=== PATIENT | male | born 1965 | race Caucasian/White ===

== ENCOUNTER 2017-05-01 17:31 | Outpatient (CLI) | payer OTHER ==
[~2017-05-01] VITALS: Ht 152.4 cm; Wt 80.7 kg
[~2017-05-01 17:31] MED LIST: CATAFLAM50 MG PO; FLEXERIL10 MG PO; FLONASE16 GM NS; NORFLEX100MG PO; PROTONIX20 MG PO; TESSALON PERLE100 MG PO; VOLTAREM 50 MG PO; ZITHROMAX TRI-500 MG PO; ZYRTEC10 MG PO
== END 2017-05-01 17:50 | disposition home or self-care (01) ==
LOC: PPHC 17:31
DX: R51 Headache (principal); I10 Essential (primary) hypertension; Z01.89 Encounter for other specified special examinations

== ENCOUNTER 2018-05-17 10:29 | Outpatient (CLI) | payer OTHER ==
[~2018-05-17] VITALS: Ht 170.2 cm; Wt 79.4 kg
== END 2018-05-17 10:45 | disposition home or self-care (01) ==
LOC: OFIC 805 10:29
DX: H93.90 Unspecified disorder of ear, unspecified ear (principal); H61.23 Impacted cerumen, bilateral

== ENCOUNTER 2018-05-22 08:56 | Outpatient (CLI) | payer OTHER | END 2018-05-22 09:18 | disposition home or self-care (01) | LOC: SONOGRAMA 08:56 → MAMO-SONO 09:15 → SONOGRAMA 09:18 | DX: E04.1 Nontoxic single thyroid nodule (principal) ==

== ENCOUNTER 2018-07-01 10:16 | Outpatient (CLI) | payer OTHER ==
[~2018-07-01] VITALS: Ht 152.4 cm; Wt 79.4 kg
== END 2018-07-01 10:30 | disposition home or self-care (01) ==
LOC: OFIC 805 10:16
DX: R22.1 Localized swelling, mass and lump, neck (principal)